=== PATIENT | female | born 1970 | race Caucasian/White ===

== ENCOUNTER 2019-01-22 04:58 | Emergency (ER) | payer SELFPAY ==
[~2019-01-22] VITALS: Ht 160 cm; Wt 53.6 kg
[2019-01-22] MEDS ORDERED: NS 1,000 ML IV ONE (06:15)
[2019-01-22] MEDS ORDERED: KETOROLAC 30 MG/ML VIAL (J1885) IV ONE (06:15)
[2019-01-22 06:28] LABS: BASO # 0.1 10^3/uL (0.0-0.2); BASO % 0.6 % (0.0-1.0); EOS # 0.1 10^3/uL (0.0-0.50); EOS % 1.4 % (0.0-3.0); HEMATOCRIT 44.7 % (36.0-47.0); HEMOGLOBIN 15.6 g/dl (12.0-15.5); LYMPH # 3.3 10^3/uL (1.5-4.5); LYMPH % 41.3 % (24.0-44.0); MEAN CORPUSCULAR HEMOGLOBIN 35.3 pg (27.0-33.0); MEAN CORPUSCULAR HGB CONC 34.9 g/dl (32.0-36.5); MEAN CORPUSCULAR VOLUME 101.1 fl (80.0-96.0); MONO # 0.4 10^3/uL (0.0-0.8); MONO % 5.4 % (0.0-5.0); NEUTROPHILS % 50.8 % (36.0-66.0); PLATELET COUNT, AUTOMATED 258 10^3/uL (150-450); RED BLOOD COUNT 4.42 10^6/uL (4.00-5.40); WHITE BLOOD COUNT 7.9 10^3/uL (4.0-10.0)
[2019-01-22 06:36] LABS: ALBUMIN 3.7 GM/DL (3.2-5.2); ALT/SGPT 28 U/L (12-78); BILIRUBIN,DIRECT < 0.1 MG/DL (0.0-0.2); BILIRUBIN,TOTAL 0.5 MG/DL (0.2-1.0); BLOOD UREA NITROGEN 8 MG/DL (7-18); CALCIUM LEVEL 8.9 MG/DL (8.5-10.1); CARBON DIOXIDE LEVEL 27 MEQ/L (21-32); CHLORIDE LEVEL 102 MEQ/L (98-107); CREATININE FOR GFR 0.66 MG/DL (0.55-1.30); GLOMERULAR FILTRATION RATE > 60.0 (>51); GLUCOSE, FASTING 105 MG/DL (70-100); POTASSIUM SERUM 3.6 MEQ/L (3.5-5.1); SODIUM LEVEL 137 MEQ/L (136-145); TOTAL PROTEIN 7.7 GM/DL (6.4-8.2)
[2019-01-22 06:40] LABS: APPEARANCE, URINE MANUAL CLOUDY (CLEAR); BILIRUBIN, URINE MANUAL NEGATIVE (NEGATIVE); BLOOD URINE MANUAL TRACE (NEGATIVE); COLOR, URINE MANUAL YELLOW (YELLOW); GLUCOSE, URINE (UA) MANUAL NEGATIVE (NEGATIVE); KETONE, URINE MANUAL NEGATIVE (NEGATIVE); LEUKOCYTE ESTERASE, URINE MAN POSITIVE (NEGATIVE); NITRITE, URINE MANUAL NEGATIVE (NEGATIVE); PH,URINE MAN 8.5 UNITS (5.0 - 7.0); PROTEIN, URINE MANUAL 1+ mg/dL (NEGATIVE); SPECIFIC GRAVITY,URINE MANUAL 1.016 (1.002-1.035); UROBILINOGEN, URINE MANUAL NORMAL (NORMAL)
[2019-01-22 06:42] LABS: AMORPHOUS SEDIMENT, URINE SMALL AMOUNT (NEGATIVE); BACTERIA, URINE SMALL AMOUNT; HYALINE CAST, URINE NONE SEEN /lpf (0-1); SQUAMOUS EPITHELIAL CELL URINE MOD AMOUNT /hpf (SMALL AMT)
[2019-01-22] MEDS ORDERED: METHOCARBAMOL 750 MG TAB PO ONE (07:30)
[2019-01-22] MEDS ORDERED: ACETAMINOPHEN 325 MG TAB PO ONE (07:30)
--- NOTE | 2019-01-22 07:49 | REPVR ---
EXAM: US Retroperitoneal Limited, Kidneys EXAM DATE/TIME: 01/22/2019 6:37 AM CLINICAL HISTORY: 48 years old, female; Pain; Abdominal pain; Flank; Right lower quadrant (rlq); Additional info: Right flank pain TECHNIQUE: Imaging protocol: Real-time ultrasound of the retroperitoneum with image documentation. Examination was focused on the kidneys. COMPARISON: Abdomen, limited US 09/07/2014 6:17 PM (report not provided) FINDINGS: Right kidney: The right kidney measures 11.3 x 4.0 x 4.5 cm. There is no hydronephrosis or demonstrated renal stone, cyst or mass. Left kidney: The left kidney measures 11.0 x 4.8 x 4.3 cm. There is no hydronephrosis or demonstrated renal stone, cyst or mass. Bladder: The urinary bladder appears grossly unremarkable. IMPRESSION: No significant abnormality. Electronically signed by: Ezekiel Ortega On 01/22/2019 07:49:47 AM
[2019-01-22] MEDS ORDERED: NAPR-837 PO (08:00)
[2019-01-22] MEDS ORDERED: ROBA500T PO (08:00)
[2019-01-22] MEDS ORDERED: LIDO5DIS41 TD (08:10)
[2019-01-22 08:20] VITALS: BP 156/84
[2019-01-22] MEDS ORDERED: LIDOCAINE 5% (LIDODERM) PATCH TD ONE (08:45)
[2019-01-22] MEDS ORDERED: **NOTE PATIENT COMMENT** MISC XX SCH (21:00)
== END 2019-01-22 08:50 | disposition home or self-care (01) ==
LOC: M ED 04:58
DX: M54.9 Dorsalgia, unspecified (principal); M62.830 Muscle spasm of back
CPT/HCPCS: 76775; 80048; 80076; 81000; 85025; 96361; 96374; 99283; J1885

== ENCOUNTER 2019-07-23 17:52 | Emergency (ER) | payer SELFPAY ==
[~2019-07-23] VITALS: Ht 160 cm; Wt 53.6 kg
[~2019-07-23 17:52] MED LIST: LIDO5DIS41 TD; NAPR-837 PO; ROBA500T PO
[2019-07-23] MEDS ORDERED: IBUP200C25 PO (18:23)
[2019-07-23] MEDS ORDERED: ROBA750T4 PO (19:03)
[2019-07-23] MEDS ORDERED: NAPR-837 PO (19:03)
[2019-07-23] MEDS ORDERED: METHOCARBAMOL 750 MG TAB PO ONE (19:15)
[2019-07-23] MEDS ORDERED: LIDOCAINE 5% (LIDODERM) PATCH TD ONE (19:15)
[2019-07-23] MEDS ORDERED: NAPROXEN 250 MG TAB PO ONE (19:15)
[2019-07-23 19:18] VITALS: BP 188/91
[2019-07-23] MEDS ORDERED: **NOTE PATIENT COMMENT** MISC XX SCH (21:00)
== END 2019-07-23 19:21 | disposition home or self-care (01) ==
LOC: M ED 17:52
DX: M62.830 Muscle spasm of back (principal); F17.200 Nicotine dependence, unspecified, uncomplicated

== ENCOUNTER 2019-07-25 18:17 | Emergency (ER) | payer SELFPAY ==
[~2019-07-25] VITALS: Ht 160 cm; Wt 53.6 kg
[~2019-07-25 18:17] MED LIST changes: +IBUP200C25 PO; +ROBA750T4 PO
[2019-07-25] MEDS ORDERED: LIDOCAINE 5% (LIDODERM) PATCH TD ONE (19:00)
[2019-07-25] MEDS ORDERED: KETOROLAC 60 MG/2 ML VIAL (J1885) IM ONE (19:00)
[2019-07-25] MEDS ORDERED: diazePAM 10 MG TAB PO ONE (19:00)
[2019-07-25 19:19] LABS: BASO % 0.6 % (0.0-1.0); EOS # 0.1 10^3/uL (0.0-0.5); EOS % 1.9 % (0.0-3.0); HEMATOCRIT 44.3 % (36.0-47.0); HEMOGLOBIN 15.4 g/dl (12.0-15.5); LYMPH % 32.2 % (24.0-44.0); MEAN CORPUSCULAR HEMOGLOBIN 35.3 pg (27.0-33.0); MEAN CORPUSCULAR HGB CONC 34.8 g/dl (32.0-36.5); MEAN CORPUSCULAR VOLUME 101.6 fl (80.0-96.0); MONO # 0.4 10^3/uL (0.0-0.8); MONO % 5.5 % (0.0-5.0); NEUTROPHILS # 3.8 10^3/uL (1.5-8.5); NEUTROPHILS % 59.5 % (36.0-66.0); PLATELET COUNT, AUTOMATED 231 10^3/uL (150-450); RED BLOOD COUNT 4.36 10^6/uL (4.00-5.40); WHITE BLOOD COUNT 6.3 10^3/uL (4.0-10.0)
--- NOTE | 2019-07-25 19:24 | REPVR ---
PROCEDURE INFORMATION: Exam: CT Thoracic Spine Without Contrast Exam date and time: 07/25/2019 6:59 PM Clinical history: 49 years old, female; Pain in thoracic spine; Additional info: Worsening back pain despite meds, PT tender TECHNIQUE: Imaging protocol: Computed tomography images of the thoracic spine without contrast. Radiation optimization: All CT scans at this facility use at least one of these dose optimization techniques: automated exposure control; mA and/or kV adjustment per patient size (includes targeted exams where dose is matched to clinical indication); or iterative reconstruction. COMPARISON: No relevant prior studies available. FINDINGS: Vertebrae: No acute fracture. Normal alignment. Discs/Spinal canal/Neural foramina: The spine demonstrates mild degenerative changes. Soft tissues: Unremarkable. IMPRESSION: No acute findings. Minimal degenerative spondylosis. Electronically signed by: Ej De La Fuente On 07/25/2019 19:24:04 PM
[2019-07-25 19:46] LABS: ALBUMIN 4.4 GM/DL (3.2-5.2); ALT/SGPT 24 U/L (12-78); BILIRUBIN,TOTAL 0.7 MG/DL (0.2-1.0); BLOOD UREA NITROGEN 7 MG/DL (7-18); CALCIUM LEVEL 9.2 MG/DL (8.5-10.1); CARBON DIOXIDE LEVEL 23 MEQ/L (21-32); CHLORIDE LEVEL 106 MEQ/L (98-107); GLOMERULAR FILTRATION RATE > 60.0 (>51); GLUCOSE, FASTING 93 MG/DL (70-100); POTASSIUM SERUM 3.7 MEQ/L (3.5-5.1); SODIUM LEVEL 141 MEQ/L (136-145); TOTAL PROTEIN 7.7 GM/DL (6.4-8.2)
[2019-07-25] MEDS ORDERED: PRED20TA PO (20:05)
[2019-07-25 20:08] VITALS: BP 131/69
[2019-07-25] MEDS ORDERED: NAPR-837 PO (20:08)
[2019-07-25] MEDS ORDERED: LIDO1PAD TOP (20:12)
[2019-07-25] MEDS ORDERED: **NOTE PATIENT COMMENT** MISC XX SCH (21:00)
== END 2019-07-25 20:14 | disposition home or self-care (01) ==
LOC: M ED 18:17
DX: M62.830 Muscle spasm of back (principal); F17.210 Nicotine dependence, cigarettes, uncomplicated
CPT/HCPCS: 36415; 72128; 80053; 81001; 85025; 87086; 96372; 99283; J1885

== ENCOUNTER 2021-06-05 13:38 | Emergency (ER) | payer SELFPAY ==
[~2021-06-05] VITALS: Ht 160 cm; Wt 65.8 kg
[~2021-06-05 13:38] MED LIST changes: +LIDO1PAD TOP; +PRED20TA PO
[2021-06-05 13:39] VITALS: BP 177/87
[2021-06-06] MEDS ORDERED: MAGN1CAP PO (08:51)
[2021-06-06] MEDS ORDERED: DICL75TA PO (14:01)
[2021-06-06] MEDS ORDERED: METH-1165 PO (14:01)
== END 2021-06-05 19:56 | disposition left against medical advice (07) ==
LOC: M ED 13:38
DX: Z53.21 Procedure and treatment not carried out due to patient leaving prior to being seen by health care provider (principal)

== ENCOUNTER 2021-06-06 08:34 | Emergency (ER) | payer SELFPAY ==
[~2021-06-06] VITALS: Ht 160 cm; Wt 52.7 kg
[2021-06-06] MEDS ORDERED: MAGN1CAP PO (08:51)
[2021-06-06] MEDS ORDERED: CYCLOBENZAPRINE 10MG TABLET PO ONE (11:05)
[2021-06-06] MEDS ORDERED: KETOROLAC 60MG 2ML VIAL IM ONE (11:05)
[2021-06-06] MEDS ORDERED: LIDOCAINE 5% (LIDODERM) PATCH TD ONE (12:05)
[2021-06-06] MEDS ORDERED: diazePAM 5MG TABLET PO ONE (12:55)
[2021-06-06] MEDS ORDERED: METH-1165 PO (14:01)
[2021-06-06] MEDS ORDERED: DICL75TA PO (14:01)
[2021-06-06 14:11] VITALS: BP 168/83
[2021-06-06] MEDS ORDERED: **NOTE PATIENT COMMENT** MISC XX SCH (21:00)
== END 2021-06-06 14:12 | disposition home or self-care (01) ==
LOC: M ED 08:34
DX: G89.29 Other chronic pain (principal); M54.5 Low back pain; Z79.899 Other long term (current) drug therapy
CPT/HCPCS: 96372; 99283; J1885

== ENCOUNTER 2023-02-05 09:16 | Emergency (ER) | payer SELFPAY ==
[~2023-02-05] VITALS: Ht 160 cm; Wt 65.6 kg
[~2023-02-05 09:16] MED LIST changes: +DICL75TA PO; +MAGN1CAP PO; +METH-1165 PO
[2023-02-05] MEDS ORDERED: NAPR220C14 PO (09:44)
[2023-02-05] MEDS ORDERED: ASPI81CH33 PO (09:44)
[2023-02-05] MEDS ORDERED: ACETAMINOPHEN 500 MG TAB PO ONE (11:50)
[2023-02-05] MEDS ORDERED: CYCLOBENZAPRINE 10MG TABLET PO ONE (11:50)
[2023-02-05] MEDS ORDERED: LIDOCAINE 5% (LIDODERM) PATCH TD ONE (11:50)
[2023-02-05] MEDS ORDERED: KETOROLAC 60MG 2ML VIAL IM ONE (11:50)
[2023-02-05] MEDS ORDERED: LIDO5DIS41 TOP (13:12)
[2023-02-05 13:18] VITALS: BP 162/80
[2023-02-05] MEDS ORDERED: METH-1164 PO (13:23)
== END 2023-02-05 13:33 | disposition home or self-care (01) ==
LOC: M ED 09:16
DX: S39.012A Strain of muscle, fascia and tendon of lower back, initial encounter (principal); M62.830 Muscle spasm of back; X50.3XXA Overexertion from repetitive movements, initial encounter; Y99.0 Civilian activity done for income or pay; F17.200 Nicotine dependence, unspecified, uncomplicated; Z79.82 Long term (current) use of aspirin; Z79.899 Other long term (current) drug therapy
CPT/HCPCS: 81001; 87186; 96372; 99283; J1885

== ENCOUNTER 2025-06-01 13:08 | Emergency (ER) | payer SELFPAY ==
[~2025-06-01] VITALS: Ht 160 cm; Wt 63.4 kg
[~2025-06-01 13:08] MED LIST changes: +ASPI81CH33 PO; +LIDO1ADH93 TD; +LIDO1ADH93 TOP; -LIDO5DIS41 TD; +METH-1164 PO; +NAPR220C14 PO
[2025-06-01] MEDS: FAMOTIDINE 20 MG/2 ML VIAL IVP ONE (14:41)
[2025-06-01] MEDS: MORPHINE 2 MG/ML 1 ML VIAL IV PRN (14:46)
[2025-06-01 14:59] LABS: BASO # 0.0 10^3/uL (0.0-0.2); BASO % 0.3 % (0.0-1.0); EOS # 0.1 10^3/uL (0.0-0.5); EOS % 0.5 % (0.0-3.0); LYMPH # 1.5 10^3/uL (1.5-5.0); LYMPH % 15.8 % (24.0-44.0); MONO # 0.5 10^3/uL (0.0-0.8); MONO % 5.0 % (2.0-8.0); NEUTROPHILS # 7.5 10^3/uL (1.5-8.5); NEUTROPHILS % 77.8 % (36.0-66.0); PLATELET COUNT, AUTOMATED 210 10^3/uL (150-450)
[2025-06-01 15:11] LABS: INR 0.97
[2025-06-01 15:15] LABS: KETONE, URINE AUTO RFX NEGATIVE (NEGATIVE); MUCUS, URINE RFX SMALL (NEGATIVE); NITRITE, URINE AUTO RFX NEGATIVE (NEGATIVE); RBC, URINE AUTO RFX 6 /HPF (0-3); SQUAM EPITHELIAL CELL UR AURFX 1 /HPF (0-6)
[2025-06-01 15:16] LABS: LEUKOCYTE ESTERASE UR AUTO RFX 2+ (NEGATIVE); WBC, URINE AUTO RFX 11 /HPF (0-3)
[2025-06-01 15:26] LABS: ALT/SGPT 13 U/L (7.0-40); AST/SGOT 17 U/L (<34); CK-MB VALUE MASS < 1.0 NG/ML (<3.6)
[2025-06-01 15:40] LABS: CPK CREATINE PHOSPHOKINASE 23 U/L (34-145)
[2025-06-01] MEDS ORDERED: ISOVUE-370 76% 100 ML VIAL As Ordered ONE (15:46)
[2025-06-01] MEDS: PIPERACILLIN/TAZOBACTAM SOD 3.375 GM in DEXTROSE 5% (D5W) ADV/MINI-BAG 50 ML IV ONE (16:50)
[2025-06-01 17:30] VITALS: TEMP 98.6
[2025-06-01 17:45] VITALS: BP 138/68; O2SAT 99
[2025-06-01] MEDS ORDERED: AMOX875T2 PO (17:49)
[2025-06-02] MEDS ORDERED: MAGN500T2 PO (13:03)
== END 2025-06-01 17:56 | disposition left against medical advice (07) ==
LOC: M ED 13:08
DX: K52.9 Noninfective gastroenteritis and colitis, unspecified (principal); K50.019 Crohn's disease of small intestine with unspecified complications; K35.80 Unspecified acute appendicitis; K57.30 Diverticulosis of large intestine without perforation or abscess without bleeding; Z79.2 Long term (current) use of antibiotics; Z79.82 Long term (current) use of aspirin; Z53.9 Procedure and treatment not carried out, unspecified reason
CPT/HCPCS: 74177; 76705; 80047; 80076; 81001; 82150; 82550; 82553; 83605; 83690; 84484; 85025; 85610; 85730; 87086; 93005; 93041; 96365; 96375; 99284; J1308; J2543; J2765; Q9967

== ENCOUNTER 2025-07-01 10:24 | Day surgery (SDC) | payer SELFPAY ==
[~2025-07-01] VITALS: Ht 160 cm; Wt 62.0 kg
[~2025-07-01 10:24] MED LIST changes: +AMOX875T2 PO; +CIPR-249 PO; +MAGN500T2 PO; +METR-265 PO; +OXYC1TAB23 PO
[2025-07-01 12:28] VITALS: BP 155/74; TEMP 96.9; O2SAT 100
== END 2025-07-01 12:29 | disposition home or self-care (01) ==
LOC: M OPP 10:24
PROVIDERS: ATTEND Internal Medicine Gastroenterology
DX: K63.5 Polyp of colon (principal); K57.30 Diverticulosis of large intestine without perforation or abscess without bleeding; K64.8 Other hemorrhoids; R93.3 Abnormal findings on diagnostic imaging of other parts of digestive tract; Z79.82 Long term (current) use of aspirin; Z79.899 Other long term (current) drug therapy; F17.210 Nicotine dependence, cigarettes, uncomplicated

== ENCOUNTER → 2025-07-22 | Outpatient (REF) | payer OTHER, SELFPAY ==
[~2025-07-22] MED LIST changes: +LOSA50TA5 PO; +PANT20TA6 PO; +ROSU10TA61 PO
[2025-07-22 20:12] LABS: PLATELET COUNT, AUTOMATED 396 10^3/uL (150-450)
[2025-07-22 20:16] LABS: ALT/SGPT 13 U/L (7.0-40); AST/SGOT 18 U/L (<34); CALCIUM LEVEL 9.2 MG/DL (8.5-10.1); CARBON DIOXIDE LEVEL 30 MMOL/L (20-31); CHLORIDE LEVEL 106 MMOL/L (98-107); CHOLESTEROL LEVEL 262 MG/DL (<200); CHOLESTEROL RISK RATIO 5.29 (<5); CREATININE FOR GFR 0.53 MG/DL (0.55-1.30); GLOMERULAR FILTRATION RATE > 90.0 (>51); LDL CHOLESTEROL 143.7 MG/DL (<100); NON-HDL-C 212.5 MG/DL; POTASSIUM SERUM 4.0 MMOL/L (3.5-5.1); SODIUM LEVEL 140 MMOL/L (136-145); TRIGLYCERIDES LEVEL 344 MG/DL (<150)
== END ==
LOC: M LAB REF 18:09
PROVIDERS: ATTEND Student in an Organized Health Care Education/Training Program
DX: I10 Essential (primary) hypertension (principal)

== ENCOUNTER → 2025-08-10 | Outpatient (CLI) | payer OTHER ==
[~2025-08-10] MED LIST changes: +ISOVUE-370 76% 100 ML VIAL As Ordered ONE; -LOSA50TA5 PO; -PANT20TA6 PO; -ROSU10TA61 PO
== END ==
LOC: M RAD 08:20
PROVIDERS: ATTEND Internal Medicine Gastroenterology
DX: R93.3 Abnormal findings on diagnostic imaging of other parts of digestive tract (principal); K50.00 Crohn's disease of small intestine without complications; K36 Other appendicitis; I70.0 Atherosclerosis of aorta; K44.9 Diaphragmatic hernia without obstruction or gangrene; K57.90 Diverticulosis of intestine, part unspecified, without perforation or abscess without bleeding; R93.49 Abnormal radiologic findings on diagnostic imaging of other urinary organs
CPT/HCPCS: 74177; 83993; Q9967

== ENCOUNTER → 2025-09-10 | Outpatient (CLI) | payer OTHER ==
[~2025-09-10] MED LIST changes: +ISOVUE-300 61% 100 ML VIAL IV SCH; +LOSA50TA5 PO; +MIDAZOLAM INJ 2 MG/2 ML VIAL IV PRN; +NS (Normal Saline) 0.9% 1,000 ML IV SCH; +PANT20TA6 PO; +ROSU10TA90 PO; +SODIUM CHLORIDE 0.9% 1000 ML XX SCH
[2025-09-10 14:00] VITALS: TEMP 99.2
[2025-09-10 15:09] VITALS: BP 153/87; O2SAT 99
[2025-09-10] MEDS: LIDOCAINE 1% MDV 20 ML VIAL SC SCH (15:25)
== END ==
LOC: M IRPRO 13:25
PROVIDERS: ATTEND Internal Medicine Gastroenterology
DX: K65.1 Peritoneal abscess (principal); K36 Other appendicitis
CPT/HCPCS: 49424; 75989; 76080; Q9967